=== PATIENT | female | born 1970 | race Caucasian/White ===

== ENCOUNTER 2018-06-04 09:02 | Emergency (ER) | END 2018-06-04 11:38 | disposition home or self-care (01) ==

== ENCOUNTER 2018-06-05 21:53 | Inpatient (IN) | payer MEDICAID ==
[~2018-06-05] VITALS: Ht 160 cm; Wt 80.9 kg
[~2018-06-05 21:53] MED LIST: DICY10CA40 PO; ONDA4TAB14 PO
[2018-06-05] MEDS ORDERED: ONDANSETRON 4 MG INJ IV STA (22:29)
[2018-06-05] MEDS ORDERED: morphine 4 MG/ML VIAL IV STA (22:29)
[2018-06-05] MEDS ORDERED: SOD CHLORIDE 0.9% 1,000 ML IV STA (22:29)
[2018-06-06] MEDS ORDERED: HYDROmorphONE 0.5 MG/0.5 ML SYG IV STA (00:08)
--- NOTE | 2018-06-06 00:48 | ERD ---
ER Documentation Chief Complaint Chief Complaint abd pain x 1 week, was here yesterday for same HPI This is a 48-year-old female with abdominal pain for 1 week. She was here yesterday for the same. Denies any fevers or chills. Denies any other complaints. Patient is vomited 4-5 times nonbilious nonbloody she is also x6 episodes of diarrhea. She denies any trauma. Was seen here yesterday but did not have any imaging done. ROS All systems reviewed and are negative except as per history of present illness. Medications Home Meds Active Scripts Ondansetron (Ondansetron Odt) 4 Mg Tab.rapdis, 4 MG PO Q6H PRN for NAUSEA AND/OR VOMITING, #10 TAB Prov:MARCIAL RODRIGUEZ MD 06/04/18 Dicyclomine HCl (Dicyclomine HCl) 10 Mg Capsule, 10 MG PO TID PRN for ABDOMINAL CRAMPING, #20 CAP Prov:MARCIAL RODRIGUEZ MD 06/04/18 Allergies Allergies: Coded Allergies: No Known Allergy (Unverified , 06/05/18) PMhx/Soc Medical and Surgical Hx: pt denies Medical Hx, pt denies Surgical Hx Hx Alcohol Use: No Hx Substance Use: No Hx Tobacco Use: Yes Smoking Status: Current some day smoker Physical Exam Vitals Vital Signs Date Temp Pulse Resp B/P (MAP) Pulse Ox O2 O2 Flow FiO2 Time Delivery Rate 06/05/18 100.3 104 20 143/105 98 21:55 (118) Physical Exam Const: No acute distress Head: Atraumatic Eyes: Normal Conjunctiva ENT: Normal External Ears, Nose and Mouth. Neck: Full range of motion. No meningismus. Resp: Clear to auscultation bilaterally Cardio: Regular rate and rhythm, no murmurs Abd: Soft, non tender, non distended. Normal bowel sounds Skin: No petechiae or rashes Back: No midline or flank tenderness Ext: No cyanosis, or edema Neur: Awake and alert Psych: Normal Mood and Affect Result Diagram: 06/05/18224406/05/182244 Results 24 hrs Laboratory Tests Test 06/05/18 22:44 06/05/18 22:45 POC Beta HCG, Qualitative NEGATIVE White Blood Count 17.5 10^3/ul Red Blood Count 3.95 10^6/ul Hemoglobin 11.0 g/dl Hematocrit 33.8 % Mean Corpuscular Volume 85.6 fl Mean Corpuscular Hemoglobin 27.8 pg Mean Corpuscular Hemoglobin Concent 32.5 g/dl Red Cell Distribution Width 13.2 % Platelet Count 387 10^3/UL Mean Platelet Volume 9.6 fl Immature Granulocytes % 0.600 % Neutrophils % 82.0 % Lymphocytes % 11.1 % Monocytes % 5.8 % Eosinophils % 0.3 % Basophils % 0.2 % Nucleated Red Blood Cells % 0.0 /100WBC Immature Granulocytes # 0.100 10^3/ul Neutrophils # 14.4 10^3/ul Lymphocytes # 1.9 10^3/ul Monocytes # 1.0 10^3/ul Eosinophils # 0.1 10^3/ul Basophils # 0.0 10^3/ul Nucleated Red Blood Cells # 0.0 10^3/ul Urine Color YELLOW Urine Clarity CLEAR Urine pH 7.0 Urine Specific [place] 1.011 Urine Ketones NEGATIVE mg/dL Urine Nitrite NEGATIVE mg/dL Urine Bilirubin NEGATIVE mg/dL Urine Urobilinogen 1+ mg/dL Urine Leukocyte Esterase NEGATIVE [place]és[place]/ul Urine Microscopic RBC 2 /HPF Urine Microscopic WBC 4 /HPF Urine Hemoglobin NEGATIVE mg/dL Urine Glucose 3+ mg/dL Urine Total Protein 3+ mg/dl Sodium Level 136 mmol/L Potassium Level 3.2 mmol/L Chloride Level 95 mmol/L Carbon Dioxide Level 26 mmol/L Anion Gap 15 Blood Urea Nitrogen 6 mg/dl Creatinine 0.47 mg/dl Est Glomerular Filtrat Rate mL/min > 60 mL/min Glucose Level 212 mg/dl Calcium Level 9.1 mg/dl Total Bilirubin 0.2 mg/dl Direct Bilirubin 0.00 mg/dl Indirect Bilirubin 0.2 mg/dl Aspartate Amino Transf (AST/SGOT) 36 IU/L Alanine Aminotransferase (ALT/SGPT) 42 IU/L Alkaline Phosphatase 230 IU/L Troponin I < 0.012 ng/ml Total Protein 7.2 g/dl Albumin 3.7 g/dl Globulin 3.50 g/dl Albumin/Globulin Ratio 1.05 Lipase 53 U/L Current Medications Medications Dose Sig/Annabelle Start Time Status Last (Trade) Ordered Route PRN Stop Time Admin Dose Reason Admin Sodium 1,000 ml @ Q1H STAT 06/05/18 DC 06/05/18 Chloride 1,000 mls/hr IV 22:29 22:53 06/05/18 23:28 Morphine 4 mg ONCE STAT 06/05/18 DC 06/05/18 Sulfate IV 22:29 22:53 (morphine) 06/05/18 22:30 Ondansetron 4 mg ONCE STAT 06/05/18 DC 06/05/18 HCl (Zofran IV 22:29 22:53 Inj) 06/05/18 22:30 1 mg ONCE STAT 06/06/18 DC 06/06/18 Hydromorphone IV 00:08 00:14 HCl 06/06/18 (Dilaudid) 00:09 Sodium 1,000 ml @ Q10H IV 06/06/18 Chloride 100 mls/hr 01:18 IV Flush 3 ml PER 06/06/18 (NS 3 ml) PROTOCOL IV 01:30 Ondansetron 4 mg Q6H PRN 06/06/18 HCl (Zofran IV NAUSEA 01:30 Inj) AND/OR VOMITING 650 mg Q6H PRN 06/06/18 Acetaminophen PO PAIN 01:30 (Tylenol LEVEL 1-3 OR Tab) FEVER 0.4 mg Q4H PRN 06/06/18 Hydromorphone IV SEVERE 02:00 HCl PAIN LEVEL (Dilaudid) 7-10 40 mg DAILY@06 06/06/18 Pantoprazole IV 06:00 (Protonix Iv) Sodium 500 ml @ Q1H ONCE 06/06/18 Chloride 500 mls/hr IV 01:30 06/06/18 02:29 Procedures/MDM Medical decision making: Very pleasant patient with abdominal pain. At this point patient feels somewhat better with pain control. She is stable for outpatient management. She has no evidence of intra-abdominal process. She however continues to have severe abdominal pain nausea vomiting diarrhea. Given this I feel the patient is to be admitted for further evaluation and management. I made Dr. Lamar aware of this. He accepted the patient to her service for further evaluation and management. EKG: Rate/Rhythm: [Normal Sinus Rhythm] QRS, ST, T-waves: [No changes consistent w/ acute ischemia] Impression: [No evidence of ischemia or arrhythmia] Chest X-ray 1V Interpreted by me: Soft Tissue: No acute abnormalities Bones: No acute abnormalities Mediastinum/Cardiac Silhouette/Lungs: [No acute abnormalities] Departure Diagnosis: Primary Impression: Abdominal pain Abdominal location: unspecified location Qualified Codes: R10.9 - Unspecified abdominal pain Condition: Serious CONCHITA LEWIS Jun 06, 2018 00:48
[2018-06-06] MEDS ORDERED: SOD CHLORIDE 0.9% 1,000 ML IV SCH (01:18)
[2018-06-06] MEDS ORDERED: SOD CHLORIDE 0.9% 500 ML IV ONE (01:30)
[2018-06-06] MEDS ORDERED: ACETAMINOPHEN 325 MG TAB PO PRN (01:30)
[2018-06-06] MEDS ORDERED: NACL 0.9% 3 ML SYG IV SCH (01:30)
[2018-06-06] MEDS ORDERED: HYDROmorphONE 1 MG/ML SYG IV PRN (02:00)
[2018-06-06] MEDS: POTASSIUM CHLORIDE 30 MEQ in SOD CHLORIDE 0.45% 1,000 ML IV SCH ×3 (03:39→22:47)
--- NOTE | 2018-06-06 04:54 | HP ---
Date/Time of Note Date/Time of Note DATE: 06/06/18 TIME: 04:52 Assessment/Plan VTE Prophylaxis SCD applied (from Nsg): Yes Pharmacological prophylaxis: NA/contraindicated Pharm contraindication: low risk/ambulating Lines/Catheters IV Catheter Type (from Nrsg): Peripheral IV Assessment/Plan Hospital Course This is a 48-year-old female being admitted to the [facility] floor for: 1. Sepsis: Unknown source, likely gastrointestinal versus genitourinary. CT scan negative pelvis did not show any acute abnormalities., Patient does however look to be ill-appearing. At the current time will proceed to check an ESR level, CRP level. We will also check a right upper quadrant ultrasound and check a GGT level given the severity of her pain of the right upper quadrant on palpation as well as an elevated alk phos. If any of these are elevated we will start the patient on antibiotics while awaiting further results. #2 abdominal pain: Nausea vomiting and diarrhea. Patient has pain diffusely throughout the abdomen with it being greater in the right upper quadrant as well as right lower quadrant. CT scan of the abdomen pelvis without contrast did not show any acute abnormalities. I will proceed to get a CT scan of the abdomen pelvis with IV contrast to further evaluate. Will check a GGT level. She does have an elevated alk phos which could give credence to possible gallbladder e tiology. Also check stool studies. Consider general surgery consultation . No signs of DKA despite elevated blood sugar of 300 in the BMP. #3 hyperglycemia: Patient did have a blood glucose of approximately 303 on BMP. At the current time we will check a hemoglobin A1c, IV fluid hydration with normal saline. She does not appear to be in any DKA at the current time. #4 hypokalemia: Secondary likely to poor p.o. intake and nausea vomiting and diarrhea. At the current time will for IV fluid hydration with half-normal saline supplemented with KCl. We will keep the patient n.p.o. at the current time given her nausea and vomiting. Zofran for nausea. #4 obesity: We will check a hemoglobin A1c, lipid panel, TSH #5 DVT GI prophylaxis: SCDs, no GI prophylaxis indicated Further treatment strategy will be implemented as per the clinical course. Result Diagram: 06/05/18224406/05/18 2245 Results 24hrs Laboratory Tests Test 06/05/18 22:44 06/05/18 22:45 06/06/18 02:38 POC Beta HCG, Qualitative NEGATIVE White Blood Count 17.5 H Red Blood Count 3.95 L Hemoglobin 11.0 L Hematocrit 33.8 L Mean Corpuscular Volume 85.6 Mean Corpuscular Hemoglobin 27.8 L Mean Corpuscular 32.5 Hemoglobin Concent Red Cell Distribution Width 13.2 Platelet Count 387 Mean Platelet Volume 9.6 Immature Granulocytes % 0.600 H Neutrophils % 82.0 H Lymphocytes % 11.1 L Monocytes % 5.8 Eosinophils % 0.3 Basophils % 0.2 Nucleated Red Blood Cells % 0.0 Immature Granulocytes # 0.100 H Neutrophils # 14.4 H Lymphocytes # 1.9 Monocytes # 1.0 H Eosinophils # 0.1 Basophils # 0.0 Nucleated Red Blood Cells # 0.0 Urine Color YELLOW Urine Clarity CLEAR Urine pH 7.0 Urine Specific [place] 1.011 Urine Ketones NEGATIVE Urine Nitrite NEGATIVE Urine Bilirubin NEGATIVE Urine Urobilinogen 1+ H Urine Leukocyte Esterase NEGATIVE Urine Microscopic RBC 2 Urine Microscopic WBC 4 Urine Hemoglobin NEGATIVE Urine Glucose 3+ H Urine Total Protein 3+ H Sodium Level 136 Potassium Level 3.2 L Chloride Level 95 L Carbon Dioxide Level 26 Anion Gap 15 H Blood Urea Nitrogen 6 L Creatinine 0.47 Est Glomerular Filtrat > 60 Rate mL/min Glucose Level 212 Calcium Level 9.1 Total Bilirubin 0.2 Direct Bilirubin 0.00 Indirect Bilirubin 0.2 Aspartate Amino 36 Transf (AST/SGOT) Alanine 42 Aminotransferase (ALT/SGPT) Alkaline Phosphatase 230 H Troponin I < 0.012 Total Protein 7.2 Albumin 3.7 Globulin 3.50 H Albumin/Globulin Ratio 1.05 Lipase 53 Erythrocyte Sedimentation Rate 150 H Lactic Acid Level 1.1 Gamma Glutamyl Transpeptidase 199 H C-Reactive Protein 18.5 H HPI/ROS Admit Date/Time Admit Date/Time Jun 06, 2018 at 01:15 Hx of Present Illness Chief complaint: Nausea vomiting and diarrhea This is a 48-year-old female who presents today with abdominal pain and nausea vomiting times 5 days. Patient originally presented to [facility] on 06/04/2018 with similar symptoms and was discharged with Bentyl and Zofran. Patient's nausea vomiting and pain has continued which led her to come back to the ER for another evaluation. She reports that she went to [facility] on the and a few hours after that started developing the shakes and felt cold. She then started having nausea vomiting and diarrhea. She states that originally the pain was epigastric and the now it is towards the right lower quadrant. She has not had a bowel movement though in 2 days. She did have her menses on May 13 and then started spotting again today. She denies any joint pains or joint swelling. She denies any urinary urgency or frequency. Denies any foul-smelling urine. Denies any hematemesis or hematuria or hematochezia. Or melena Allergies: NKDA Medications: None ROS Const: As per HPI Eyes : No pain discharge or redness or change in visual acuity ENT: No pain, sore throat, congestion, congestion, dysphagia or discharge Respiratory: No shortness of breath, cough, sputum, wheezing, or pleuritic pain Cardiovascular: No chest pain, palpitation, PND, or edema GI : As per HPI Genitourinary: No dysuria, hematuria, flank pain , discharge or CVA tenderness Musculoskeletal: No joint pain, back pain, neck pain, restricted range of motion in neck or joints Skin: No rash, bruising or hives Neuro: No headache, dizziness, syncope, seizure, focal weakness Endocrine: No polyuria, polydipsia, temperature intolerance Psych: No hallucination, depression, anxiety or suicidal ideation PMH/Family/Social Past Medical History Medical History: no pertinent history Medications Current Medications IV Flush (NS 3 ml) 3 ml PER PROTOCOL IV ; Start 06/06/18 at 01:30 Ondansetron HCl (Zofran Inj) 4 mg Q6H PRN IV NAUSEA AND/OR VOMITING; Start 06/06/18 at 01:30 Acetaminophen (Tylenol Tab) 650 mg Q6H PRN PO PAIN LEVEL 1-3 OR FEVER; Start 06/06/18 at 01:30 Hydromorphone HCl (Dilaudid) 0.4 mg Q4H PRN IV SEVERE PAIN LEVEL 7-10; Start 06/06/18 at 02:00 Pantoprazole (Protonix Iv) 40 mg DAILY@06 IV ; Start 06/06/18 at 06:00 Potassium Chloride 30 meq/ Sodium Chloride 1,015 ml @ 100 mls/hr Q10H9M IV Last administered on 06/06/18at 03:39; Admin Dose 100 MLS/HR; Start 06/06/18 at 03:00 Vancomycin HCl (Vanco Iv Per Pharmacy) VANCOMYCIN PER PHARMACY PER PROTOCOL XX ; Start 06/06/18 at 05:00 Piperacillin Sod/ Tazobactam Sod 100 ml @ 200 mls/hr Q6 IVPB ; Start 06/06/18 at 05:00 Coded Allergies: No Known Allergy (Unverified , 06/05/18) Past Surgical History Right hand tendon surgery Family History Significant Family History: no pertinent family hx Social History Alcohol Use: none Smoking Status: Current some day smoker Drug Use: none Exam/Review of Systems Vital Signs Vitals Vital Signs Date Temp Pulse Resp B/P (MAP) Pulse Ox O2 O2 Flow FiO2 Time Delivery Rate 06/06/18 88 16 131/71 99 Room Air 03:57 (91) 06/06/18 98.9 02:27 Exam Exam General: Patient is currently lying in bed in moderate distress from abdominal pain HEENT: Atraumatic, normocephalic. The pupils are equal, round and reactive. Extraocular motor are intact Neck: Supple with full range of motion. No rigidity or meningismus Chest: Nontender Lungs: Clear to auscultation bilaterally no crackles rales or wheezing Heart: Normal S1-S2, Regular rhythm and rate. No murmur, S3, or S4 Abdomen: Obese, nondistended, right upper quadrant tenderness to palpation along with tenderness palpation of the right lower quadrant. Normal bowel sounds. Extremities: Normal to inspection, no edema no cyanosis Neurologic: Normal mental status, speech normal, cranial nerves II through XII are intact, motor and sensory are intact, Additional Comments PROCEDURE: Chest. CLINICAL INDICATION: Chest pain. TECHNIQUE: Single frontal view of the chest was obtained. COMPARISON: None. FINDINGS: The cardiac silhouette is within normal limits. The aortic arch is unremarkable. There is no focal consolidation, vascular congestion or pleural effusion. There is no pneumothorax. IMPRESSION: No evidence for active cardiopulmonary disease. .Nestor Diallo MD, Date Time Electronically viewed and signed by .Nestor Diallo MD, on 06/05/2018 23:55 .T/ CC: CONCHITA LEWIS [id number] PROCEDURE: CT Abdomen and pelvis without contrast. CLINICAL INDICATION: Abdominal pain. TECHNIQUE: CT scan of the abdomen and pelvis was performed on a multi- detector high-resolution CT scanner. Contiguous axial images were obtained from the lung bases to the ischial tuberosities without intravenous contrast. Cor onal and sagittal reformatted images were also obtained. Images were reviewed on the PACS workstation. DICOM images are available. One or more of the following dose reduction techniques were used: - Automated exposure control. - Adjustment of the mA and/or kV according to patient size. - Use of iterative reconstruction technique. Exam CTD/vol = 18.75 mGy. Total exam DLP = 1172.84 mGy-cm. COMPARISON: None. FINDINGS: Evaluation of the lung bases demonstrates no pleural or parenchymal disease. Abdomen: The liver is normal in size and diffusely low in attenuation consistent with fatty infiltration. There is no focal mass or dilatation of the biliary tree. The gallbladder is not distended. The spleen, pancreas and bilateral adrenal glands are within normal limits. Bilateral kidneys are normal in size with no contour deforming mass identified. There is no radiopaque renal or ureteral calculus identified. There is no hydronephrosis or hydroureter. There is no retroperitoneal adenopathy. The abdominal aorta is of normal caliber. There is no abnormal bowel wall thickening or distension. There is no bowel obstruction or free air. A normal appendix is identified. There is no diverticulosis or diverticulitis. There is no ascites. Pelvis: The bladder is unremarkable. The uterus is unremarkable. There are multiple left adnexal cysts with the largest measuring 4.0 x 2.6 cm. There is no significant pelvic adenopathy or free fluid. Evaluation of the osseous structures demonstrates no suspicious lytic or blastic lesion. IMPRESSION: Fatty infiltration of the liver. Left adnexal cysts measuring up to 4.0 cm. Otherwise no acute abnormality identified within the abdomen and pelvis. .Nestor Diallo MD, MD Date Time Electronically viewed and signed by .Nestor Diallo MD, MD on 06/06/2018 00:41 .T/ CC: CONCHITA LEWIS [id number] NELSON KINNEY Jun 06, 2018 04:54
--- NOTE | 2018-06-06 04:55 | NUR ---
Vancomycin per Rx 48 y/o F 5'3" 80.6kg SCr 0.47 NKDA Vancomycin 1.5 gm IV x1 dose Then start Vancomycin 1.25 gm IV q12h Check Vancomycin trough level soon
[2018-06-06 04:58] VITALS: Ht 160 cm; Wt 80.9 kg
[2018-06-06 04:59] VITALS: BP 146/76; PULSE 85; RESP 20
[2018-06-06] MEDS ORDERED: PIPER-TAZO 3.375 GM IV (PMX) 100 ML IVPB SCH (05:00)
[2018-06-06] MEDS ORDERED: VANCOMYCIN IV PER PHARMACY XX SCH (05:00)
[2018-06-06] MEDS: PANTOPRAZOLE 40 MG INJ IV SCH (05:06)
[2018-06-06] MEDS: ONDANSETRON 4 MG INJ IV PRN ×2 (05:06→19:24)
[2018-06-06] MEDS ORDERED: IOHEXOL 300MG/ML 150 ML BTL ONE (05:13)
[2018-06-06] MEDS ORDERED: SOD CHLORIDE 0.9% 100 ML ONE (05:13)
--- NOTE | 2018-06-06 05:30 | NUR ---
PT ARRIVED FROM ED VIA STRETCHER. NSNG DATA OBTAINED, NSNG ASSESSMENT DONE. PT MADE COMFORTABLE IN BED CALL LIGHT WITHIN REACH. DR KINNEY NOTIFIED OF ARRIVAL. PT WITH VSS, WRETCHING. ZOFRAN GIVEN AND PAIN MEDS GIVEN
[2018-06-06] MEDS ORDERED: HYDROmorphONE 0.5 MG/0.5 ML SYG IM STA (05:33)
--- NOTE | 2018-06-06 05:45 | NUR ---
PT SEEN BY DR KNINEY. PT LEFT FOR CT SCAN. PHARMACY CALLED TO RESCHEDULE ABX. PHARMACIST STATED TO CALL WHEN PT RETURNS AND TIME WILL BE ADJUSTED AT THAT TIME. PT WILL PROCEED TO ULTRASOUND AFTER CT.
--- NOTE | 2018-06-06 06:05 | NUR ---
Procedure Ordered:CT ABD/PELVIS W/IV CONT Reason for Exam Today: Previous Exams: Allergies:NKDA Current Medications Taken: Glucophage ( ) Metformin ( ) Previous reaction to contrast media: Yes ( ) No ( ) : Yes ( ) No (X ) Asthma: Yes ( ) No ( X) Diabetes: Yes ( ) No ( X) Myeloma: Yes ( ) No ( X) Heart Disease: Yes ( ) No ( X) Cardiac Disease: Yes ( ) No ( X) Kidney Disease: Yes ( ) No ( X) Vascular Disease: Yes ( ) No (X ) Patient Teaching done: Yes ( X) No ( ) Exercise Physiologist Certified Used: Yes ( ) No ( X) Name of Exercise Physiologist Certified: Language Used: As part of the test requested by your doctor, contrast media may be injected into your vein while the x-rays are being taken. Occasionally, reactions from IV contrast may occur. The physician and staff of this hospital are trained to treat these reactions. Select the type of Contrast that will be given to patient: Isovue 300 ( ) Isovue 370 ( ) Visipaque ( ) Cystografin ( ) Gastrographin ( ) Redi-cat ( ) Volumen ( ) [id number](X) Amount of contrast to be given: 90CC IV ( X) PO ( ) Date given:06/06/18 Lab Values: BUN: 6 Creatinine:0.47 Reason why contrast cannot be given: Location of patient pre-procedure:403-A Location of patient post procedure:403-A
[2018-06-06] MEDS ORDERED: VANCOMYCIN 1.5 GM in SOD CHLORIDE 0.9% 250 ML IVPB SCH (06:30)
[2018-06-06] MEDS: PIPER-TAZO 3.375 GM IV (PMX) 100 ML IVPB SCH ×4 (06:40→23:56)
[2018-06-06] MEDS: HYDROmorphONE 1 MG/ML SYG IV PRN ×3 (06:49→19:25)
[2018-06-06 07:38] VITALS: BP 131/76; PULSE 84; RESP 18
--- NOTE | 2018-06-06 11:09 | PN ---
Date/Time of Note Date/Time of Note DATE: 06/06/18 TIME: 11:03 Assessment/Plan VTE Prophylaxis Risk score (from Ns)>0 risk: 2 SCD applied (from Ns): Yes Pharmacological prophylaxis: LMWH Lines/Catheters IV Catheter Type (from [facility]): Peripheral IV Assessment/Plan Result Diagram: 06/06/18 0644 06/06/18 0644 Results 24hrs Laboratory Tests Test 06/05/18 22:44 06/05/18 22:45 06/06/18 02:38 06/06/18 06:44 POC Beta HCG, NEGATIVE Qualitative White Blood 17.5 H 16.7 H Count Red Blood Count 3.95 L 3.52 L Hemoglobin 11.0 L 9.9 L Hematocrit 33.8 L 30.1 L Mean Corpuscular 85.6 85.5 Volume Mean Corpuscular 27.8 L 28.1 L Hemoglobin Mean Corpuscular 32.5 32.9 Hemoglobin Lizbeth nt Red Cell 13.2 13.2 Distribution Width Platelet Count 387 347 Mean Platelet 9.6 9.4 Volume Immature 0.600 H 0.700 H Granulocytes % Neutrophils % 82.0 H Lymphocytes % 11.1 L Monocytes % 5.8 Eosinophils % 0.3 Basophils % 0.2 Nucleated Red 0.0 0.0 Blood Cells % Immature 0.100 H 0.120 H Granulocytes # Neutrophils # 14.4 H Lymphocytes # 1.9 Monocytes # 1.0 H Eosinophils # 0.1 Basophils # 0.0 Nucleated Red 0.0 Blood Cells # Urine Color YELLOW Urine Clarity CLEAR Urine pH 7.0 Urine Specific 1.011 [place] Urine Ketones NEGATIVE Urine Nitrite NEGATIVE Urine Bilirubin NEGATIVE Urine 1+ H Urobilinogen Urine Leukocyte NEGATIVE Esterase Urine 2 Microscopic RBC Urine 4 Microscopic WBC Urine Hemoglobin NEGATIVE Urine Glucose 3+ H Urine Total 3+ H Protein Sodium Level 136 138 Potassium Level 3.2 L 3.2 L Chloride Level 95 L 98 Carbon Dioxide 26 26 Level Anion Gap 15 H 14 H Blood Urea 6 L 6 L Nitrogen Creatinine 0.47 0.42 L Est Glomerular > 60 > 60 Filtrat Rate mL/min Glucose Level 212 198 Calcium Level 9.1 8.1 L Total Bilirubin 0.2 0.2 Direct Bilirubin 0.00 0.00 Indirect 0.2 0.2 Bilirubin Aspartate Amino 36 23 Transf (AST/SGOT ) Alanine 42 39 Aminotransferase (ALT/SGPT) Alkaline 230 H 204 H Phosphatase Troponin I < 0.012 Total Protein 7.2 6.3 Albumin 3.7 3.2 L Globulin 3.50 H 3.10 Albumin/Globulin 1.05 1.03 Ratio Lipase 53 Erythrocyte 150 H Sedimentation Rate Lactic Acid 1.1 Level Gamma Glutamyl 199 H Transpeptidase C-Reactive 18.5 H Protein Segmented 71 Neutrophils % (Manual) Band Neutrophils 17 H % (Manual) Lymphocytes % 8 L (Manual) Monocytes % 4 (Manual) Neutrophils # 12.3 H (Manual) Band Neutrophils 2.8 H # Lymphocytes 1.3 (Manual) Monocytes # 0.6 (Manual) Platelet NORMAL Estimate Hypochromasia 1+ Hemoglobin A1c 10.6 H Magnesium Level 1.5 L Triglycerides 185 H Level Cholesterol 131 Level LDL Cholesterol, 55 Calculated HDL Cholesterol 39 Cholesterol/HDL 3.3 Ratio Thyroid 0.734 Stimulating Hormone (TSH) Subjective 24 Hr Interval Summary Free Text/Dictation subjective: Still with a lot of pain, pain is located in suprapubic area objective: Constitutional: alert, oriented, anxious, teary Head: atraumatic, normocephalic Neck: non-tender, supple Respiratory: clear to auscultation Cardiovascular: regular rate and rhythm Gastrointestinal: S/very tender in the suprapubic region/ ND / +BS Extremities: no edema, good radial pulses assessment and plan: 1. SIRS: Unknown source, -Patient has significant suprapubic tenderness, CT scan negative pelvis did not show any acute abnormalities except for uterine fibroids and ovarian cyst, -continue empiric antibiotics with Zosyn only for now, DC vancomycin. #2 abdominal pain with Nausea vomiting and diarrhea. -Patient's pain seems to be more localized to the suprapubic region -CT scan of the abdomen pelvis with IV contrast showing fundal leiomyoma and a pelvic ultrasound showing ovarian cyst -Maybe 2/2 dm gastroparesis versus uterine fibroids or cyst torsion #3 Newly diagnosed DM2 , A1C 10,2 -commence hypoglycemics, diabetic education #4 hypokalemia: -replete #4 obesity: Diet counseling once feeling better #5 uterine myoma with ovarian cysts on USS: -This may be the source of her pain, will get VICE PRESIDENT DIGITAL STRATEGIST consult, continue pain control #6 Dyslipidemia: diet counselling DVT GI prophylaxis: SCDs, no GI prophylaxis indicated Further treatment strategy will be implemented as per the clinical course. Exam/Review of Systems Vital Signs Vitals Vital Signs Date Temp Pulse Resp B/P (MAP) Pulse Ox O2 O2 Flow FiO2 Time Delivery Rate 06/06/18 97.9 84 18 131/76 97 Room Air 07:38 (94) Intake and Output 06/05/18 06/05/18 06/06/18 1515:00 23:00 07:00 IntakeIntake Total 200 ml BalanceBalance 200 ml Medications Medications Current Medications IV Flush (NS 3 ml) 3 ml PER PROTOCOL IV ; Start 06/06/18 at 01:30 Ondansetron HCl (Zofran Inj) 4 mg Q6H PRN IV NAUSEA AND/OR VOMITING Last administered on 06/06/18at 05:06; Admin Dose 4 MG; Start 06/06/18 at 01:30 Acetaminophen (Tylenol Tab) 650 mg Q6H PRN PO PAIN LEVEL 1-3 OR FEVER; Start 06/06/18 at 01:30 Pantoprazole (Protonix Iv) 40 mg DAILY@06 IV Last administered on 06/06/18at 05:06; Admin Dose 40 MG; Start 06/06/18 at 06:00 Potassium Chloride 30 meq/ Sodium Chloride 1,015 ml @ 100 mls/hr Q10H9M IV Last administered on 06/06/18at 03:39; Admin Dose 100 MLS/HR; Start 06/06/18 at 03:00 Vancomycin HCl (Vanco Iv Per Pharmacy) VANCOMYCIN PER PHARMACY PER PROTOCOL XX ; Start 06/06/18 at 05:00 Piperacillin Sod/ Tazobactam Sod 100 ml @ 200 mls/hr Q6 IVPB Last administered on 06/06/18at 06:40; Admin Dose 200 MLS/HR; Start 06/06/18 at 05:00 Vancomycin HCl 1.5 gm/Sodium Chloride 250 ml @ 83.333 mls/ hr 0630 IVPB Last administered on 06/06/18at 07:47; Admin Dose 83.333 MLS/HR; Start 06/06/18 at 06:30; Stop 06/06/18 at 19:00 Vancomycin HCl 1.25 gm/Sodium Chloride 250 ml @ 83.333 mls/ hr Q12H IVPB ; Start 06/06/18 at 18:30 Hydromorphone HCl (Dilaudid) 1 mg Q4H PRN IV SEVERE PAIN LEVEL 7-10 Last administered on 06/06/18at 10:52; Admin Dose 1 MG; Start 06/06/18 at 06:00 Miscellaneous Information (*Rx Drug Level Order Reminder*) VANCO TROUGH ON 05/14... ONCE ONCE XX ; Start 06/07/18 at 17:30; Stop 06/07/18 at 17:31 Potassium Chloride (Klor-Con 20) 40 meq Q4H PO ; Start 06/06/18 at 11:00; Stop 06/06/18 at 15:01; Status UNV Magnesium Sulfate 50 ml @ 25 mls/hr ONCE ONCE IVPB ; Start 06/06/18 at 11:00; Stop 06/06/18 at 12:59; Status UNV CLEVELAND HOFFMANN Jun 06, 2018 11:09
[2018-06-06] MEDS ORDERED: GLUCOSE GEL 15 GRAM TUBE PO PRN ×2 (11:30)
[2018-06-06] MEDS ORDERED: GLUCOSE GEL 15 GRAM TUBE BUCCAL PRN (11:30)
[2018-06-06] MEDS ORDERED: GLUCAGON 1 MG INJ IM PRN (11:30)
[2018-06-06] MEDS ORDERED: DEXTROSE 50% 50 ML SYRINGE IV PRN ×2 (11:30)
[2018-06-06] MEDS: POTASSIUM CHLORIDE (SR) 20 MEQ TAB PO SCH ×2 (11:54→16:29)
[2018-06-06] MEDS: METOCLOPRAMIDE 10 MG INJ IV SCH ×3 (11:55→23:56)
[2018-06-06] MEDS ORDERED: LORAZEPAM 4 MG/ML VIAL IV PRN (12:00)
[2018-06-06] MEDS ORDERED: MAGNESIUM SULFATE 2 GM/50 ML 50 ML IVPB ONE (12:00)
[2018-06-06] MEDS: INSULIN ASPART [NOVOLOG] 3 ML PEN SC SCH ×3 (13:41→21:00)
[2018-06-06 14:56] VITALS: BP 132/74; PULSE 80; RESP 18
--- NOTE | 2018-06-06 16:28 | QN ---
Documentation Comment Thank you for consulting with assistant professor surgical technology team 48 yo with no gynecologic complaints had generalized abdominal pain for few days more pronounced on the right side +Nausea +vomiting +diarrjea She feels that she has food poisoning PMH Obesity PSH denies Allergies NKDA Vs table Gen MAD Abd RLQ and suprapubic tenderness no rebound No LLQ tenderness Genitalia No CMT no abnormality in vaginal exam Ultrasound and CT reviewed -->Given the above information nd assessment,I do believe the origin of pain is not gynecological. -->No Acute Cupola Liner Helper intervention is needed at this time --->Questions answered --->If there is any new info ,please share it with assistant professor surgical technology team RADHA EPSTEIN M.D. Jun 06, 2018 16:28
[2018-06-06] MEDS: HYDROCODONE/APAP (5/325) TAB PO PRN (18:14)
--- NOTE | 2018-06-06 18:26 | NUR ---
RN EOSS: PATIENT COMFORTABLE IN BED, ABDOMINAL PAIN MANAGED BY PRN PAIN MEDS AND PT VERBALIZED RELIEF, STARTED ON REGLAN FOR NAUSEA AND NO MORE EPISODES, PATIENT REFUSED INSULIN PER SS, DR HOFFMANN IS AWARE, CALL LIGHT AND BED SIDE TABLE WITHIN REACH. WILL ENDORSE PLAN OF CARE TO ONCOMING RN.
[2018-06-06] MEDS ORDERED: VANCOMYCIN 1.25 GM in SOD CHLORIDE 0.9% 250 ML IVPB SCH (18:30)
[2018-06-06 20:00] VITALS: BP 143/85; PULSE 85; RESP 18
[2018-06-07] MEDS: ACCU-CHEK XX SCH (01:48)
[2018-06-07 02:00] VITALS: BP 129/62; PULSE 101; RESP 19
[2018-06-07] MEDS: HYDROmorphONE 1 MG/ML SYG IV PRN ×4 (02:25→21:30)
[2018-06-07] MEDS: HYDROCODONE/APAP (5/325) TAB PO PRN ×3 (05:05→16:43)
[2018-06-07] MEDS: PANTOPRAZOLE 40 MG INJ IV SCH (05:48)
[2018-06-07] MEDS: PIPER-TAZO 3.375 GM IV (PMX) 100 ML IVPB SCH ×3 (05:48→17:29)
--- NOTE | 2018-06-07 06:46 | NUR ---
EOSS: PATIENT BEEN STABLE. PATIENT BEEN MEDICATED WITH PAIN. PATIENT REPORTED THAT DILAUDID 1 MG IVP IS MORE EFFECTIVE THAN NORCO. PATIENT VOIDS FREELY. NO FURTHER NAUSEA NOTED. HOURLY ROUNDING RENDERED. CALL LIGHT WITHIN REACH.
[2018-06-07] MEDS: INSULIN ASPART [NOVOLOG] 3 ML PEN SC SCH ×4 (07:50→21:00)
[2018-06-07 07:55] VITALS: BP 129/78; PULSE 78; RESP 18
[2018-06-07] MEDS: ENOXAPARIN 40 MG/0.4 ML SYG SC SCH (08:37)
[2018-06-07] MEDS: POTASSIUM CHLORIDE 30 MEQ in SOD CHLORIDE 0.45% 1,000 ML IV SCH (09:54)
--- NOTE | 2018-06-07 13:03 | PN ---
Date/Time of Note Date/Time of Note DATE: 06/07/18 TIME: 12:55 Assessment/Plan VTE Prophylaxis Risk score (from Ns)>0 risk: 2 SCD applied (from Ns): Yes Pharmacological prophylaxis: LMWH Lines/Catheters IV Catheter Type (from Nrsg): Peripheral IV Urinary Cath still in place: No Assessment/Plan Result Diagram: 06/07/18 0434 06/07/18 0434 Results 24hrs Laboratory Tests Test 06/06/18 17:31 06/06/18 21:19 06/07/18 04:34 06/07/18 08:25 Bedside Glucose 194 107 182 White Blood 19.3 H Count Red Blood Count 3.49 L Hemoglobin 9.9 L Hematocrit 30.4 L Mean Corpuscular 87.1 Volume Mean Corpuscular 28.4 L Hemoglobin Mean Corpuscular 32.6 Hemoglobin Lizbeth nt Red Cell 13.6 Distribution Width Platelet Count 371 Mean Platelet 9.6 Volume Immature 0.800 H Granulocytes % Neutrophils % 82.3 H Lymphocytes % 10.5 L Monocytes % 5.2 Eosinophils % 0.6 Basophils % 0.6 Nucleated Red 0.0 Blood Cells % Immature 0.160 H Granulocytes # Neutrophils # 15.9 H Lymphocytes # 2.0 Monocytes # 1.0 H Eosinophils # 0.1 Basophils # 0.1 Nucleated Red 0.0 Blood Cells # Erythrocyte 122 H Sedimentation Rate Sodium Level 136 Potassium Level 4.5 Chloride Level 101 Carbon Dioxide 24 Level Anion Gap 11 Blood Urea 6 L Nitrogen Creatinine 0.47 Est Glomerular > 60 Filtrat Rate mL/min Glucose Level 150 Calcium Level 8.1 L Magnesium Level 2.0 C-Reactive 18.5 H Protein Test 06/07/18 12:52 Bedside Glucose 238 H Subjective 24 Hr Interval Summary Free Text/Dictation subjective: no more pain, much more comfortable objective: Constitutional: alert, oriented, anxious, teary Head: atraumatic, normocephalic Neck: non-tender, supple Respiratory: clear to auscultation Cardiovascular: regular rate and rhythm Gastrointestinal: S/ much less suprapubic region/ ND / +BS Extremities: no edema, good radial pulses assessment and plan: 1. SIRS: Unknown source, -Patient has significant suprapubic tenderness, CT scan negative pelvis did not show any acute abnormalities except for uterine fibroids and ovarian cyst, -continue empiric antibiotics with Zosyn only for now, DC vancomycin. -PID?, pelvic USS didn't show inflammation, No CMT on exam per Preparer Samples And Repairs #2 abdominal pain with Nausea vomiting and diarrhea: resolving -Patient's pain seems to be more localized to the suprapubic region -CT scan of the abdomen pelvis with IV contrast showing fundal leiomyoma and a pelvic ultrasound showing ovarian cyst -advance diet #3 Newly diagnosed DM2 , A1C 10,2 -commence hypoglycemics, diabetic education #4 hypokalemia: -replete #4 obesity: Diet counseling once feeling better #5 uterine myoma with ovarian cysts on USS: -s/p DONOR SERVICES SPECIALIST review, likely non contributory to symptoms per DONOR SERVICES SPECIALIST #6 Dyslipidemia: diet counselling Dispo: Patient is clinically improved, but her white count is even more elevated All cultures remain negative. Continue current antibiotic regimen, continue to follow cultures, Workup for Sexually transmitted diseases, continue supportive care. Also diabetic education pending, continue current hypoglycemic regimen. Of note is that patient is refusing treatment for her diabetes stating that she wants to go and manage its diet and exercise outpatient. Despite aggressive counseling to the contrary, she does not want to be discharged on hypo-oral hypoglycemics or subacute insulin. Patient has consented to therapy inpatient for now however. Further treatment strategy will be implemented as per the clinical course. Exam/Review of Systems Vital Signs Vitals Vital Signs Date Temp Pulse Resp B/P (MAP) Pulse Ox O2 O2 Flow FiO2 Time Delivery Rate 06/07/18 97.7 78 18 129/78 98 07:55 (95) 06/06/18 Room Air 14:56 Intake and Output 06/06/18 06/06/18 06/07/18 1515:00 23:00 07:00 IntakeIntake Total 450 ml 1660 ml 850 ml OutputOutput Total 2 ml 5 ml BalanceBalance 448 ml 1655 ml 850 ml Medications Medications Current Medications IV Flush (NS 3 ml) 3 ml PER PROTOCOL IV ; Start 06/06/18 at 01:30 Ondansetron HCl (Zofran Inj) 4 mg Q6H PRN IV NAUSEA AND/OR VOMITING Last administered on 06/06/18at 19:24; Admin Dose 4 MG; Start 06/06/18 at 01:30 Acetaminophen (Tylenol Tab) 650 mg Q6H PRN PO PAIN LEVEL 1-3 OR FEVER; Start 06/06/18 at 01:30 Pantoprazole (Protonix Iv) 40 mg DAILY@06 IV Last administered on 06/07/18at 05:48; Admin Dose 40 MG; Start 06/06/18 at 06:00 Potassium Chloride 30 meq/ Sodium Chloride 1,015 ml @ 100 mls/hr Q10H9M IV Last administered on 06/07/18at 09:54; Admin Dose 100 MLS/HR; Start 06/06/18 at 03:00 Piperacillin Sod/ Tazobactam Sod 100 ml @ 200 mls/hr Q6 IVPB Last administered on 06/07/18at 11:34; Admin Dose 200 MLS/HR; Start 06/06/18 at 05:00 Hydromorphone HCl (Dilaudid) 1 mg Q4H PRN IV SEVERE PAIN LEVEL 7-10 Last administered on 06/07/18at 06:24; Admin Dose 1 MG; Start 06/06/18 at 06:00 Diagnostic Test (Pha) (Accu-Chek) 1 ea 02 XX ; Start 06/07/18 at 02:00 Insulin Aspart (Novolog Insulin Pen) NOVOLOG *MILD* ALGORITHM WITH MEALS BEDTIME SC ; Start 06/06/18 at 11:40 Miscellaneous Information 1 ea NOTE XX ; Start 06/06/18 at 11:30 Glucose (Glutose) 15 gm Q15M PRN PO DECREASED GLUCOSE; Start 06/06/18 at 11:30 Glucose (Glutose) 22.5 gm Q15M PRN PO DECREASED GLUCOSE; Start 06/06/18 at 11:30 Dextrose (D50w Syringe) 25 ml Q15M PRN IV DECREASED GLUCOSE; Start 06/06/18 at 11:30 Dextrose (D50w Syringe) 50 ml Q15M PRN IV DECREASED GLUCOSE; Start 06/06/18 at 11:30 Glucagon (Glucagen) 1 mg Q15M PRN IM DECREASED GLUCOSE; Start 06/06/18 at 11:30 Glucose (Glutose) 15 gm Q15M PRN BUCCAL DECREASED GLUCOSE; Start 06/06/18 at 11:30 Lorazepam (Ativan) 0.5 mg Q6H PRN IV anxiety Last administered on 06/06/18at 11:54; Admin Dose 0.5 MG; Start 06/06/18 at 12:00 Acetaminophen/ Hydrocodone Bitart ([place] (5/325)) 1 tab Q6H PRN PO MODERATE PAIN LEVEL 4-6 Last administered on 06/07/18at 11:34; Admin Dose 1 TAB; Start 06/06/18 at 12:00 Enoxaparin Sodium (Lovenox) 40 mg DAILY SC Last administered on 06/07/18at 08:37; Admin Dose 40 MG; Start 06/07/18 at 09:00 CLEVELAND HOFFMANN Jun 07, 2018 13:03
[2018-06-07 14:35] VITALS: BP 148/76; PULSE 77; RESP 18
--- NOTE | 2018-06-07 18:45 | NUR ---
CHARGE NURSE NOTES: Spoke with patient re: "feelings of sadness and depression because I'm overwhelmed with all the things that are going on with me medically and at home". Patient's RN, Melissa, had mentioned that patient had vented feelings of despair, and questioned "harmful thoughts to self". Patient asked about this on our 1:1 conversation and patient stated that she was on antidepressants before "like a year ago", per pt. but states, "I stopped it because it gave me cotton mouth and slurred speech that I didn't like at all". Patient stated that she "just got done speaking with her uncle in [place] who is the last of the boys in her mom's family". She said that she belonged to a big family- her mom apparently was in a family of 14 children. Patient didn't appear to be in pain, nor stated/noted to be uncomfortable during the conversation. Patient denied suicidal ideations at this, especially after speaking with her uncle. "He was singing to me on the phone and he has a great voice". Patient made aware that we had arranged for Dasia psychiatry instructor, to see her as soon as the SENIOR FUNCTIONAL ANALYST is available to see her re: her depression and she was agreeable with that. At this time as well, patient received a visitor whom she called "Hieu" who entered the room calmly and she stated that "he is also concerned of me and that he was worried about how she was feeling so he had been sleeping in the room with her (cot provided for the visitor since admit), to keep her company". RN, Melissa, updated of our conversation and will update noc shift Assurance Associate as well. Psych consult order placed in [facility] per Telephone order from primary hospitalist, Dr. Villafuerte.
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
[2018-06-07 19:43] VITALS: BP 152/73; PULSE 76; RESP 16
[2018-06-07] MEDS: DOXYCYCLINE 100 MG TAB PO SCH (20:56)
[2018-06-07] MEDS: DOCUSATE SODIUM 100 MG CAP PO SCH (20:56)
[2018-06-07] MEDS: SOD CHLORIDE 0.45% 1,000 ML IV SCH (22:33)
[2018-06-07] MEDS: ONDANSETRON 4 MG INJ IV PRN (23:05)
[2018-06-08] MEDS: PIPER-TAZO 3.375 GM IV (PMX) 100 ML IVPB SCH ×4 (00:07→18:46)
[2018-06-08 01:32] VITALS: BP 161/77; PULSE 88; RESP 16
[2018-06-08] MEDS: HYDROmorphONE 1 MG/ML SYG IV PRN ×4 (01:38→19:40)
[2018-06-08] MEDS: ACCU-CHEK XX SCH (02:00)
[2018-06-08] MEDS: PANTOPRAZOLE 40 MG INJ IV SCH (06:27)
[2018-06-08] MEDS: INSULIN ASPART [NOVOLOG] 3 ML PEN SC SCH ×4 (07:50→22:41)
[2018-06-08 08:03] VITALS: BP 155/79; PULSE 83; RESP 18
[2018-06-08] MEDS: SOD CHLORIDE 0.45% 1,000 ML IV SCH ×2 (08:07→12:17)
--- NOTE | 2018-06-08 08:20 | NUR ---
END OF SHIFT NOTE: pt is AOX4. C/O lower abdominal pain, given Hydromorphone for pain with good relief. Pt had x1 period bleed last night, not clots noted. Pt Melisa Jacobson was called yesterday and today midnight to notified the large clot from yesterday afternoon and not call back from MD and gave report to morning nurse to notified again OBYN doctor. Pt had suicidal thought last night once, but she did not have a plan. Pt will have a psy consult today and diabetic consult pending. Safety precautions taken. Call light within reach, call light in reach and hourly rounding. MRI of brain pending for this morning.
[2018-06-08] MEDS: DOXYCYCLINE 100 MG TAB PO SCH ×2 (08:40→21:21)
[2018-06-08] MEDS: DOCUSATE SODIUM 100 MG CAP PO SCH ×2 (08:40→21:21)
[2018-06-08] MEDS: ENOXAPARIN 40 MG/0.4 ML SYG SC SCH (08:42)
--- NOTE | 2018-06-08 09:18 | NUR ---
Received a call from susi cryptologic technician aware about the consult and she stated that she'll see pt today.
--- NOTE | 2018-06-08 14:04 | PSY ---
Date/Time of Note Date/Time of Note DATE: 06/08/18 TIME: 13:56 Psychiatric Subjective Eval Consent Pt consented to telemedicine: No Subjective Evaluation Patient location: inpatient Chief Complaint: abd pain x 1 week, was here yesterday for same History of present illness This is a 48-year-old female who presents to the hospital with abdominal pain and nausea vomiting . Reports feeling hopeless and depressed. Denies suicidal ideation and contracted for safety. Past psychiatric history Long history of depression Hospitalization: Suicidal Attempt(s) Medical history Problems Medical Problems: (1) Abdominal pain Status: Acute (2) Generalized abdominal pain Status: Acute (3) Hyperglycemia Status: Acute (4) Nausea vomiting and diarrhea Status: Acute Allergies: Coded Allergies: No Known Allergy (Unverified , 06/05/18) Substance Abuse Substance abuse history: No Prior substance abuse treatmen: No Social History Marital status: other (seperated) DPA/Conservatorship: No Psychiatric Objective Eval Review of Systems: Review of Systems: Not Applicable Physical Examination: Physical Examination: Not Applicable Appetite: Decreased Interest: Decreased Mental Status Examination: Appearance: Groomed Eye Contact: Fair Behavior: Cooperative, Guarded Speech: Clear Mood: Depressed Though Process: Linear Orientation: x4 Laboratory Results Laboratory Tests Test 06/06/18 17:31 06/06/18 21:19 06/07/18 04:34 06/07/18 08:25 Bedside Glucose 194 mg/dL 107 mg/dL 182 mg/dL White Blood 19.3 10^3/ul Count Red Blood Count 3.49 10^6/ul Hemoglobin 9.9 g/dl Hematocrit 30.4 % Mean Corpuscular 87.1 fl Volume Mean Corpuscular 28.4 pg Hemoglobin Mean Corpuscular 32.6 g/dl Hemoglobin Lizbeth nt Red Cell 13.6 % Distribution Width Platelet Count 371 10^3/UL Mean Platelet 9.6 fl Volume Immature 0.800 % Granulocytes % Neutrophils % 82.3 % Lymphocytes % 10.5 % Monocytes % 5.2 % Eosinophils % 0.6 % Basophils % 0.6 % Nucleated Red 0.0 /100WBC Blood Cells % Immature 0.160 10^3/ul Granulocytes # Neutrophils # 15.9 10^3/ul Lymphocytes # 2.0 10^3/ul Monocytes # 1.0 10^3/ul Eosinophils # 0.1 10^3/ul Basophils # 0.1 10^3/ul Nucleated Red 0.0 10^3/ul Blood Cells # Erythrocyte 122 mm/Hr Sedimentation Rate Sodium Level 136 mmol/L Potassium Level 4.5 mmol/L Chloride Level 101 mmol/L Carbon Dioxide 24 mmol/L Level Anion Gap 11 Blood Urea 6 mg/dl Nitrogen Creatinine 0.47 mg/dl Est Glomerular > 60 mL/min Filtrat Rate mL/min Glucose Level 150 mg/dl Calcium Level 8.1 mg/dl Magnesium Level 2.0 mg/dl C-Reactive 18.5 mg/dl Protein Test 06/07/18 12:52 06/07/18 17:29 06/07/18 22:06 06/08/18 04:36 Bedside Glucose 238 mg/dL 138 mg/dL 137 mg/dL White Blood 12.8 10^3/ul Count Red Blood Count 3.41 10^6/ul Hemoglobin 9.5 g/dl Hematocrit 30.4 % Mean Corpuscular 89.1 fl Volume Mean Corpuscular 27.9 pg Hemoglobin Mean Corpuscular 31.3 g/dl Hemoglobin Lizbeth nt Red Cell 13.7 % Distribution Width Platelet Count 379 10^3/UL Mean Platelet 9.5 fl Volume Immature 0.900 % Granulocytes % Neutrophils % 72.8 % Lymphocytes % 19.3 % Monocytes % 5.8 % Eosinophils % 0.7 % Basophils % 0.5 % Nucleated Red 0.0 /100WBC Blood Cells % Immature 0.120 10^3/ul Granulocytes # Neutrophils # 9.3 10^3/ul Lymphocytes # 2.5 10^3/ul Monocytes # 0.7 10^3/ul Eosinophils # 0.1 10^3/ul Basophils # 0.1 10^3/ul Nucleated Red 0.0 10^3/ul Blood Cells # Sodium Level 137 mmol/L Potassium Level 4.0 mmol/L Chloride Level 101 mmol/L Carbon Dioxide 30 mmol/L Level Anion Gap 6 Blood Urea 9 mg/dl Nitrogen Creatinine 0.58 mg/dl Est Glomerular > 60 mL/min Filtrat Rate mL/min Glucose Level 152 mg/dl Calcium Level 8.7 mg/dl Test 06/08/18 08:39 06/08/18 12:23 Bedside Glucose 130 mg/dL 172 mg/dL Assessment and Plan Assessment/Diagnosis Diagnosis Major Depression severe recurrent Recommendation/Plan Medication Management Wellbutrin 100mg daily Multiple antipsychotics: No Discharge Disposition: Other Legal Status: Voluntary (No criteria for 5150 hold) AVEL SHARP NP Jun 08, 2018 14:04
[2018-06-08] MEDS: BUPROPION 100 MG TAB PO SCH (15:47)
--- NOTE | 2018-06-08 16:36 | NUR ---
SS NOTE: CONSULT SW REFERRED TO PT REGARDING ASSESSMENT OF HOME SITUATION. PT IS 48 YR OLD FEMALE ADMITTED FROM HOME FOR AP. SW MET WITH PT AT BEDSIDE, PT APPEARED TO BE A&OX4 AND COPING APPROPRIATELY WITH ADMISSION. PT STATED THAT SHE LIVES AT HOME WITH HER FRIEND AND DAUGHTER JAYSON ([phone]). PT STATED THAT SHE HAS STRONG SUPPORT SYSTEM FROM HER DAUGHTER AND FRIEND. PT STATED THAT HER DAUGHTER JAYSON IS HER PRIMARY SURROGATE DECISION MAKER. PT'S DAUGHTER PROVIDES ASSISTANCE FOR APPOINTMENTS TO THE PCP. PT IS DISABLED AND IN THE PROCESS OF APPLYING FOR SSI. PT WAS ASSESSED BY [facility] FINANCIAL DATA ANALYST ON06/08/18 TO ADDRESS POSSIBLE MENTAL HEALTH ISSUES (PLEASE REFER TO ASSESSMENT DOCUMENTATION). PLAN IS FOR PT TO D/C TOMORROW AND FRIEND WILL PROVIDE TRANSPORTATION. SW PROVIDED FOUNDRY PROCESS ENGINEER CONTACT INFO FOR ANY NEEDED RESOURCES. SW REMAINS AVAILABLE FOR F/U NEEDED.
--- NOTE | 2018-06-08 18:30 | NUR ---
End of shift summary: Pt is alert and oriented. Ambulatory. FS ac and hs. New iv site inserted to right hand with good blood return. Vital signs stable. Pt refused to take norco. Dilaudid iv given x 1. Dr. Villafuerte came to see the pt. aware that pt had blood clots. In her notes stated that she will involve FIRER MARINE on the case. Tele psych came, ordered Wellbutrin po. Pt denies any suicidal thoughts. family living educator came to see pt but pt refused to talk to her, she will come back to see the pt dale. Pt is voiding, noted blood clots this afternoon. Pt went for MRI of the brain at 1725. PT on ivf and zosyn iv atb. Call light within reach. Pt was encouraged to call for assistance. pt verbalized understanding.
[2018-06-08 20:00] VITALS: BP 168/79; PULSE 85; RESP 18
[2018-06-08] MEDS: HYDROCODONE/APAP (5/325) TAB PO PRN (21:22)
[2018-06-09] MEDS: PIPER-TAZO 3.375 GM IV (PMX) 100 ML IVPB SCH ×3 (00:33→12:47)
[2018-06-09] MEDS: HYDROmorphONE 1 MG/ML SYG IV PRN (01:58)
[2018-06-09] MEDS: ACCU-CHEK XX SCH (02:00)
[2018-06-09] MEDS: SOD CHLORIDE 0.45% 1,000 ML IV SCH (02:18)
[2018-06-09 02:30] VITALS: BP 138/70; PULSE 83; RESP 18
[2018-06-09] MEDS ORDERED: PANTOPRAZOLE (EC) 40 MG TAB PO SCH (06:00)
[2018-06-09] MEDS: INSULIN ASPART [NOVOLOG] 3 ML PEN SC SCH ×2 (07:50→12:33)
[2018-06-09 08:20] VITALS: BP 150/69; PULSE 73; RESP 18
[2018-06-09] MEDS: DOCUSATE SODIUM 100 MG CAP PO SCH (09:31)
[2018-06-09] MEDS: BUPROPION 100 MG TAB PO SCH (09:31)
[2018-06-09] MEDS: DOXYCYCLINE 100 MG TAB PO SCH (09:31)
[2018-06-09] MEDS: HYDROCODONE/APAP (5/325) TAB PO PRN (09:47)
--- NOTE | 2018-06-09 10:31 | PN ---
Date/Time of Note Date/Time of Note DATE: 06/08/18 TIME: 18:46 Assessment/Plan VTE Prophylaxis Risk score (from Ns)>0 risk: 2 SCD applied (from Ns): Yes Pharmacological prophylaxis: NA/contraindicated Pharm contraindication: bleeding Lines/Catheters IV Catheter Type (from [facility]): Peripheral IV Urinary Cath still in place: No Assessment/Plan Result Diagram: 06/08/18 0436 06/08/18 0436 Results 24hrs Laboratory Tests Test 06/07/18 22:06 06/08/18 04:36 06/08/18 08:39 06/08/18 12:23 Bedside Glucose 137 130 172 White Blood 12.8 #H Count Red Blood Count 3.41 L Hemoglobin 9.5 L Hematocrit 30.4 L Mean Corpuscular 89.1 Volume Mean Corpuscular 27.9 L Hemoglobin Mean Corpuscular 31.3 L Hemoglobin Lizbeth nt Red Cell 13.7 Distribution Width Platelet Count 379 Mean Platelet 9.5 Volume Immature 0.900 H Granulocytes % Neutrophils % 72.8 Lymphocytes % 19.3 Monocytes % 5.8 Eosinophils % 0.7 Basophils % 0.5 Nucleated Red 0.0 Blood Cells % Immature 0.120 H Granulocytes # Neutrophils # 9.3 H Lymphocytes # 2.5 Monocytes # 0.7 Eosinophils # 0.1 Basophils # 0.1 Nucleated Red 0.0 Blood Cells # Sodium Level 137 Potassium Level 4.0 Chloride Level 101 Carbon Dioxide 30 Level Anion Gap 6 Blood Urea 9 Nitrogen Creatinine 0.58 Est Glomerular > 60 Filtrat Rate mL/min Glucose Level 152 Calcium Level 8.7 Test 06/08/18 17:24 Bedside Glucose 161 Subjective 24 Hr Interval Summary Free Text/Dictation subjective: still with intermittent abd pain, objective: Constitutional: alert, oriented, less anxious Head: atraumatic, normocephalic Neck: non-tender, supple Respiratory: clear to auscultation Cardiovascular: regular rate and rhythm Gastrointestinal: S/ much less suprapubic region/ ND / +BS Extremities: no edema, good radial pulses assessment and plan: 1. SIRS: Unknown source, likely 2/2 endometritis #2 abdominal pain with Nausea vomiting and diarrhea: resolving 3. 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 Despite aggressive counseling to the contrary, she does not want to be discharged on hypo-oral hypoglycemics or subacute insulin. Patient has conse nted to therapy inpatient for now however. Further treatment strategy will be implemented as per the clinical course. Exam/Review of Systems Vital Signs Vitals Vital Signs Date Temp Pulse Resp B/P (MAP) Pulse Ox O2 O2 Flow FiO2 Time Delivery Rate 06/08/18 98.0 83 18 155/79 92 Room Air 08:03 (104) Intake and Output 06/07/18 06/07/18 06/08/18 1515:00 23:00 07:00 IntakeIntake Total 750 ml 1300 ml 1150 ml OutputOutput Total 400 ml BalanceBalance 750 ml 1300 ml 750 ml Medications Medications Current Medications IV Flush (NS 3 ml) 3 ml PER PROTOCOL IV ; Start 06/06/18 at 01:30 Ondansetron HCl (Zofran Inj) 4 mg Q6H PRN IV NAUSEA AND/OR VOMITING Last administered on 06/07/18at 23:05; Admin Dose 4 MG; Start 06/06/18 at 01:30 Acetaminophen (Tylenol Tab) 650 mg Q6H PRN PO PAIN LEVEL 1-3 OR FEVER; Start 06/06/18 at 01:30 Piperacillin Sod/ Tazobactam Sod 100 ml @ 200 mls/hr Q6 IVPB Last administered on 06/08/18at 12:17; Admin Dose 200 MLS/HR; Start 06/06/18 at 05:00 Hydromorphone HCl (Dilaudid) 1 mg Q4H PRN IV SEVERE PAIN LEVEL 7-10 Last administered on 06/08/18at 12:11; Admin Dose 1 MG; Start 06/06/18 at 06:00 Diagnostic Test (Pha) (Accu-Chek) 1 ea 02 XX ; Start 06/07/18 at 02:00 Insulin Aspart (Novolog Insulin Pen) NOVOLOG *MILD* ALGORITHM WITH MEALS BEDTIME SC Last administered on 06/08/18at 12:35; Admin Dose 1 UNIT; Start 06/06/18 at 11:40 Miscellaneous Information 1 ea NOTE XX ; Start 06/06/18 at 11:30 Glucose (Glutose) 15 gm Q15M PRN PO DECREASED GLUCOSE; Start 06/06/18 at 11:30 Glucose (Glutose) 22.5 gm Q15M PRN PO DECREASED GLUCOSE; Start 06/06/18 at 11:30 Dextrose (D50w Syringe) 25 ml Q15M PRN IV DECREASED GLUCOSE; Start 06/06/18 at 11:30 Dextrose (D50w Syringe) 50 ml Q15M PRN IV DECREASED GLUCOSE; Start 06/06/18 at 11:30 Glucagon (Glucagen) 1 mg Q15M PRN IM DECREASED GLUCOSE; Start 06/06/18 at 11:30 Glucose (Glutose) 15 gm Q15M PRN BUCCAL DECREASED GLUCOSE; Start 06/06/18 at 11:30 Lorazepam (Ativan) 0.5 mg Q6H PRN IV anxiety Last administered on 06/06/18at 11:54; Admin Dose 0.5 MG; Start 06/06/18 at 12:00 Acetaminophen/ Hydrocodone Bitart ([place] (5/325)) 1 tab Q6H PRN PO MODERATE PAIN LEVEL 4-6 Last administered on 06/07/18at 16:43; Admin Dose 1 TAB; Start 06/06/18 at 12:00 Enoxaparin Sodium (Lovenox) 40 mg DAILY SC Last administered on 06/08/18at 08:42; Admin Dose 40 MG; Start 06/07/18 at 09:00 Docusate Sodium (Colace) 100 mg BID PO Last administered on 06/08/18at 08:40; Admin Dose 100 MG; Start 06/07/18 at 21:00 Doxycycline Hyclate (Vibramycin) 100 mg BID PO Last administered on 06/08/18at 08:40; Admin Dose 100 MG; Start 06/07/18 at 21:00 Sodium Chloride 1,000 ml @ 90 mls/hr Q11H7M IV Last administered on 06/08/18at 12:17; Admin Dose 90 MLS/HR; Start 06/07/18 at 21:00 Pantoprazole (Protonix Tab) 40 mg DAILY@06 PO ; Start 06/09/18 at 06:00 Bupropion HCl (Wellbutrin) 100 mg DAILY PO Last administered on 06/08/18at 15:47; Admin Dose 100 MG; Start 06/08/18 at 15:00 CLEVELAND HOFFMANN Jun 08, 2018 18:56
--- NOTE | 2018-06-09 12:15 | NUR ---
Diabetes Education Referral: Thank you for the consult. Pt is stating she wants to try lifestyle changes before any medication. HbA1c 10.6%; 81kg; BMI 31; Cr 0.58; Admitting serum glucose 212 mg/dl Pt stated she was never told she had DM or PreDM before. PT stated she is unsure if anyone in her family has/had DM. Pt stated prior to the of her daughter (now 18 years old) she used to weigh 350 lbs. Pt stated it took her 5 years to loose the weight. With the use of handouts discussed at length with patient at bedside how diabetes works in the body, where the glucose comes from, and how food breaks down into glucose. Reviewed glucose targets (pre and post meal), reviewed the different food groups and when/how to manage glucose by adjusting the carbohydrates and proteins. Discussed how different factors cause extra glucose released from the liver. Discussed how an increase in activity can assist in lowering glucose levels. After eligibility check, pt provided a Freestyle Lite glucometer. Reviewed how to use glucometer, change date and time, load lancet devices and how to correctly complete a glucose reading. Pt completed a finger stick, current result was 158 mg/dl. Resources were given to pt for future follow up. All questions answered.
--- NOTE | 2018-06-09 12:31 | DS ---
Date/Time of Note Date/Time of Note DATE: 06/09/18 TIME: 12:30 Discharge Summary Admission/Discharge Info Admit Date/Time Jun 07, 2018 at 12:12 Discharge Date/Time Discharge Diagnosis 1. SIRS: likely 2/2 endometritis 2. Abdominal pain with Nausea, vomiting and diarrhea: likely 2/2 emdometritis -resolving 3. Chronic Vaginal bleeding with uterine fibroid and enlarged uterus -outpatient f/u with CARDIAC EXERCISE PHYSIOLOGIST #4 Newly diagnosed DM2 , A1C 10,2 -Patient has been optimized, s/p DM education and counselling -patient prefers not to be on insulin or oral hypoglycemics, counselled otherwise #5 obesity: Diet counseling #6. Small ovarian cysts on USS: -benign per CARDIAC EXERCISE PHYSIOLOGIST, no further intervention required #7. Mild Dyslipidemia: s/p diet counselling #8. Long hx of depression with prev admission in remote past for suicidal attempt: -s/p psych review, restarted on meds #9. Chronic blood loss anemia 2/2 uterine fibroids -did not require transfusion, iron supplementation #10: Mild encephalopathy and confusion: resolved -MRI brain negative, . Patient Condition: Stable Consults CARDIAC EXERCISE PHYSIOLOGIST: Denise Menard Psych: Dasia López . Hospital Course This is a 48-year-old female who had presented to emergency room with complaints of severe abdominal pain and vomiting as well as nausea for the last 5 days and was found to be septic but the source was unclear. Was admitted and begun on empiric while further workup was done. She also came in with significant hyperglycemia and hemoglobin A1c of 11 confirmed the diagnosis diabetes mellitus. She had multiple studies including first a CT of the abdomen and pelvis without contrast, this showed fatty liver as well as left adnexal cysts measuring up to 4 cm. A pelvis ultrasound was also done that showed an enlarged heterogeneous uterus with fibroids measuring up to 3.8 cm and benign appearing ovarian cyst, which is likely findings the adnexa on CT. Because of persistence of her pain she also underwent a right upper quadrant ultrasound that showed fatty liver no evidence of cholelithiasis or cholecystitis and subsequently a CT of the abdomen and pelvis with IV contrast that again did not show any new findings. At some point she exhibited confusion and there was concern and so she underwent an MRI of the brain with and without contrast that also did not show any significant acute pathology. During her hospitalization she passed a blood clot, just roughly the size of small tennis ball and based on these findings in view of her sepsis, tentative diagnosis of endometritis was made. The patient responded well to empiric antibiotics. She was seen by gynecology who recommended outpatient follow-up for management of her fibroids. She did not require inpatient transfusion she was also screen for chlamydia and gonorrhea and these came back negative. At this time she has been evaluated by myself in detail and is ready for discharge after CARDIAC EXERCISE PHYSIOLOGIST clearance. She was seen by the medical office specialist counseled on diet and blood glucose management. I also spoke with her multiple times because the patient declined insulin therapy multiple times inpatient. She did express that she did not want to be on insulin therapy even as an outpatient. I have encouraged her to at least try some form of hypoglycemic therapy while she commences the lifestyle changes that she wants to institute and her PCP may be happy to wean her off therapy outpatient. I will be prescribing low-dose metformin for her to at least go home with . It is up to her if she chooses to use medication. She is also to complete 10 days of antibiotics and is recommended to follow-up outpatient with serial USS monitoring for her adnexal cysts. She has verbalized understanding. . Home Meds Active Scripts Ferrous Sulfate* (Ferrous Sulfate*) 325 Mg Tabec, 325 MG PO TID, #90 TAB Prov:CLEVELAND HOFFMANN 06/09/18 Metformin* (Glucophage*) 500 Mg Tab, 500 MG PO WITH BREAKFAST DINNE, #60 TAB Prov:CLEVELAND HOFFMANN Domingo 06/09/18 Amoxicillin/Potassium Clav (Amox-Clav 875-125 mg Tablet) 875-125 mg Tab, 1 TAB PO BID, #14 TAB Prov:CLEVELAND HOFFMANN Domingo 06/09/18 Docusate Sodium (Dok) 100 Mg Capsule, 100 MG PO BID, #28 CAP Prov:CLEVELAND HOFFMANN Domingo 06/09/18 Bupropion Hcl* (Bupropion Hcl*) 100 Mg Tablet, 100 MG PO DAILY, #30 TAB 2 R efills Prov:CLEVELAND HOFFMANN Domingo 06/09/18 Hydrocodone Bit-Acetaminophen (Hydrocodone Bit-APAP) 5-325MG Tablet, 1 TAB PO Q6H PRN for MODERATE PAIN LEVEL 4-6, #21 TAB Prov:CLEVELAND HOFFMANN 06/09/18 Doxycycline* (Vibramycin*) 100 Mg Tab, 100 MG PO BID, #10 TAB Prov:CLEVELAND HOFFMANN. 06/09/18 Ondansetron (Ondansetron Odt) 4 Mg Tab.rapdis, 4 MG PO Q6H PRN for NAUSEA AND/OR VOMITING, #10 TAB Prov:MARCIAL RODRIGUEZ MD 06/04/18 Dicyclomine HCl (Dicyclomine HCl) 10 Mg Capsule, 10 MG PO TID PRN for ABDOMINAL CRAMPING, #20 CAP Prov:MARCIAL RODRIGUEZ MD 06/04/18 Follow-up Plan * Please use the resources you have been given to pick your primary care doctor and follow-up with them for diabetic control and management. * You also need to see a sheet rocker for management of uterine fibroids. * You have declined treatment for her diabetes with medications at this time, this is against my advice, I strongly recommend that you start out with medications and slowly wean yourself off as you lose weight. If you change your mind, please contact your primary care doctor or return to the emergency room and we can start you on hypoglycemics. Primary Care Provider Care Physician No Primary Time spent on discharge: > 30 minutes Pending Labs Laboratory Tests Test 06/08/18 17:24 06/08/18 22:35 06/09/18 02:17 06/09/18 04:32 Bedside 161 204 149 Glucose mg/dL (70-220) mg/dL (70-220) mg/dL (70-220) White Blood 7.5 Count 10^3/ul (4.8-1 0.8) Red Blood 2.99 Count 10^6/ul (4.20- 5.40) Hemoglobin 8.4 g/dl (12.0-16. 0) Hematocrit 26.7 % (37.0-47.0) Mean 89.3 Corpuscular fl (82.0-101.0 Volume ) Mean 28.1 Corpuscular pg (29.0-33.0) Hemoglobin Mean 31.5 Corpuscular g/dl (32.0-37. Hemoglobin Conc 0) ent Red Cell 13.7 Distribution % (11.5-14.5) Width Platelet Count 359 10^3/UL (140-4 15) Mean Platelet 9.5 Volume fl (7.4-10.4) Immature 0.900 Granulocytes % % (0.001-0.429 ) Neutrophils % 60.2 % (39.0-77.0) Lymphocytes % 31.2 % (15.0-51.0) Monocytes % 6.2 % (0.0-11.0) Eosinophils % 1.1 % (0.0-7.0) Basophils % 0.4 % (0.0-2.0) Nucleated Red 0.0 Blood Cells % /100WBC (0.0-0 .0) Immature 0.070 Granulocytes # 10^3/ul (0.0-0 .031) Neutrophils # 4.5 10^3/ul (1.6-7 .5) Lymphocytes # 2.4 10^3/ul (0.8-2 .9) Monocytes # 0.5 10^3/ul (0.3-0 .9) Eosinophils # 0.1 10^3/ul (0.0-0 .5) Basophils # 0.0 10^3/ul (0.0-0 .1) Nucleated Red 0.0 Blood Cells # 10^3/ul (0.0-0 .0) Sodium Level 140 mmol/L (135-14 4) Potassium 4.2 Level mmol/L (3.5-5. 1) Chloride Level 100 mmol/L (97-110 ) Carbon Dioxide 30 Level mmol/L (21-31) Anion Gap 10 (5-13) Blood Urea 9 mg/dl (7-20) Nitrogen Creatinine 0.48 mg/dl (0.44-1. 00) Est Glomerular > 60 Filtrat mL/min (>60) Rate mL/min Glucose Level 194 mg/dl (70-220) Calcium Level 8.7 mg/dl (8.4-10. 2) Magnesium 1.7 Level mg/dl (1.7-2.5 ) Test 06/09/18 08:36 Bedside 133 Glucose mg/dL (70-220) CLEVELAND HOFFMANN Jun 09, 2018 12:31
[2018-06-09] MEDS ORDERED: DOCU-216 PO (12:32)
[2018-06-09] MEDS ORDERED: HYDR-3601 PO (12:32)
[2018-06-09] MEDS ORDERED: AMOX1TAB10 PO (12:32)
[2018-06-09] MEDS ORDERED: BUPR100T14 PO (12:32)
[2018-06-09] MEDS ORDERED: DOXY100T2 PO (12:32)
[2018-06-09] MEDS ORDERED: METF-849 PO (12:49)
--- NOTE | 2018-06-09 12:50 | PDOCDIS ---
Discharge Instructions DIAGNOSIS Discharge Diagnosis 1. SIRS: likely 2/2 endometritis 2. abdominal pain with Nausea vomiting and diarrhea: resolving 3. Vaginal bleeding with uterine fibroid and enlarged uterus 4. Newly diagnosed DM2 , A1C 10,2 5. Dyslipidemia: diet counselling . CONDITION [id number] Patient Condition: [id number] Stable ACTIVITY: [id number] Activity Restrictions: [id number] Slowly Increase Activity Rest between Activity FOLLOW UP/APPOINTMENTS Follow-up Plan * Please use the resources you have been given to pick your primary care doctor and follow-up with them for diabetic control and management. * You also need to see a photoengraving supervisor for management of uterine fibroids. * You have declined treatment for her diabetes with medications at this time, this is against my advice, I strongly recommend that you start out with medications and slowly wean yourself off as you lose weight. If you change your mind, please contact your primary care doctor or return to the emergency room and we can start you on hypoglycemics. CLEVELAND HOFFMANN. Jun 09, 2018 12:50
--- NOTE | 2018-06-09 13:09 | QN ---
Documentation Comment spoke to Dr Villauferte who is cocerning of beeding with clot,which is most likely due to uterine fibroid according to imaging study and reviewing the chart. . and blood count is dropped is more likely due to hemodilution plus some loss of blood which can be restored with iron supplement as outpt. ok to discharge and f/u as out patient for further diagnosis and treatment if necessary GILA ALEXIS MD Jun 09, 2018 13:08
--- NOTE | 2018-06-09 14:00 | NUR ---
SS NOTE: SW MET WITH PT AT THE BEDSIDE. PT HAS MEDI-TRELL. SW PROVIDED AND EXPLAINED THE [facility] FOR FOLLOW UP AFTER D/C. NO OTHER ISSUES NOTED. SW WILL FOLLOW UP NEEDED.
[2018-06-09] MEDS ORDERED: FER325 PO (15:29)
--- NOTE | 2018-06-09 15:35 | NUR ---
DISCHARGE NOTE: Pt stable for discharge. Discharge information given to pt, prescription placed in packet. All other prescriptions e-prescribed to preferred pharmacy. IV removed, tip intact, site asymptomatic. All belongings collected by pt. Pt taken down to front lobby in wheelchair by volunteer.
== END 2018-06-09 15:30 | disposition home or self-care (01) | DRG 758 ==
LOC: E/R 21:53 → MS1 06-06 01:15 → OBSVTOIN 06-07 12:12
PROVIDERS: ADMIT Family Medicine; ATTEND Family Medicine
DX: N71.9 Inflammatory disease of uterus, unspecified (principal); F33.9 Major depressive disorder, recurrent, unspecified; G93.40 Encephalopathy, unspecified; R65.10 Systemic inflammatory response syndrome (SIRS) of non-infectious origin without acute organ dysfunction; E11.65 Type 2 diabetes mellitus with hyperglycemia; E87.6 Hypokalemia; E66.9 Obesity, unspecified; Z68.31 Body mass index [BMI] 31.0-31.9, adult; N93.9 Abnormal uterine and vaginal bleeding, unspecified; D25.9 Leiomyoma of uterus, unspecified; D50.0 Iron deficiency anemia secondary to blood loss (chronic); K76.0 Fatty (change of) liver, not elsewhere classified; R19.7 Diarrhea, unspecified
CPT/HCPCS: 36415; 70553; 71045; 74176; 74177; 76705; 76830; 76856; 80048; 80053; 80061; 81001; 81025; 82962; 82977; 83036; 83605; 83690; 83735; 84443; 84484; 85025; 85651; 86140; 87040; 87086; 87591; 93005; 96374; 96375; C9113; G0378; J1170; J1650; J1815; J2060; J2270; J2405; J2543; J2765; J3370; J3475; J3480; J7030; J7040; J7050; Q9967